=== PATIENT | female | born 1975 | race Caucasian/White ===

== ENCOUNTER 2017-02-06 22:34 | Emergency (ER) | payer BC, OTHER ==
--- NOTE | 2017-02-06 23:25 | EDM.PDOC ---
ED HPI GENERAL MEDICAL PROBLEM - General Chief Complaint: Lower Extremity Injury/Pain Stated Complaint: FELL Time Seen by Provider: 02/06/17 23:16 - History of Present Illness INITIAL COMMENTS - FREE TEXT/NARRATIVE: HISTORY AND PHYSICAL: History of present illness: Patient is 40-year-old female presents status post fall she struck her head right elbow and right knee she did not have loss consciousness she does complain of mild headache she does have a contusion and small hematoma on her occipital scalp area she denies chest pain shortness breath palpitations or other concern Review of systems: As per history of present illness and below otherwise all systems reviewed and negative. Past medical history: As per history of present illness and as reviewed below otherwise noncontributory. Surgical history: As per history of present illness and as reviewed below otherwise noncontributory. Social history: No reported history of drug or alcohol abuse. Family history: As per history of present illness and as reviewed below otherwise noncontributory. Physical exam: HEENT: Small right-sided occipital hematoma noted in the scalp normocephalic, pupils reactive, negative for conjunctival pallor or scleral icterus, mucous membranes moist, throat clear, neck supple, nontender, trachea midline. Lungs: Clear to auscultation, breath sounds equal bilaterally, chest nontender. Heart: S1S2, regular, negative for clicks, rubs, or JVD. Abdomen: Soft, nondistended, nontender. Negative for masses or hepatosplenomegaly. Negative for costovertebral tenderness. Pelvis: Stable nontender. Genitourinary: Deferred. Rectal: Deferred. Extremities: No gross deformity no point tenderness no crepitation neurovascular exam unremarkable throughout Neuro: Awake, alert, oriented. Cranial nerves II through XII unremarkable. Cerebellum unremarkable. Motor and sensory unremarkable throughout. Exam nonfocal. Diagnostics: CT brain x-ray right elbow x-ray right knee Therapeutics: None Impression: #1 observation status post fall #2 head trauma #3 right elbow injury #4 right knee injury Definitive disposition and diagnosis as appropriate pending reevaluation and review of above. right knee Pain Score (Numeric/FACES): 8 - Related Data Allergies Allergy/AdvReac Type Severity Reaction Status Date / Time ciprofloxacin HCl Allergy Tachycardia Verified 02/06/17 22:47 [From Cipro] morphine Allergy Anaphylactic Verified 02/06/17 22:47 Shock sertraline HCl [From Zoloft] Allergy Change Verified 02/06/17 22:47 Mental Status Home Meds: Home Meds Citalopram Hydrobromide [Celexa] 20 mg PO BEDTIME 02/27/14 [History] Fa/Arginine HCl/B12/B6/Pep Ex [Folbee Ar Tablet] 1 each PO WDIN 02/27/14 [ History] Pantoprazole [Protonix] 40 mg PO BEDTIME 02/27/14 [History] traZODone 50 mg PO BEDTIME 02/27/14 [History] Past Medical History HEENT History: Reports: None Cardiovascular History: Reports: Hypertension Respiratory History: Reports: Asthma, Other (See Below) Other Respiratory History: Reactive airway disease Gastrointestinal History: Reports: None Genitourinary History: Reports: None [employer]ATE History: Reports: Spontaneous Musculoskeletal History: Reports: None Neurological History: Reports: None Psychiatric History: Reports: Anxiety, Depression Endocrine/Metabolic History: Reports: Hypoparathyroidism Hematologic History: Reports: None Immunologic History: Reports: None Oncologic (Cancer) History: Reports: None Dermatologic History: Reports: None - Infectious Disease History Infectious Disease History: Reports: Chicken Pox - Past Surgical History HEENT Surgical History: Reports: Tonsillectomy GI Surgical History: Reports: Bariatric Procedure, Cholecystectomy Musculoskeletal Surgical History: Reports: Other (See Below) Other Musculoskeletal Surgeries/Procedures:: bilateral knee surgery Social & Family History - Family History Family Medical History: Noncontributory - Tobacco Use Smoking Status *Q: Former Smoker Years of Tobacco use: 3 Used Tobacco, but Quit: No - Recreational Drug Use Recreational Drug Use: No Review of Systems - Review of Systems Review Of Systems: ROS reveals no pertinent complaints other than HPI. ED EXAM, GENERAL - Physical Exam Exam: See Below (See dictation) Course - Vital Signs Last Recorded V/S: Last Vital Signs Temp 36.3 C 02/06/17 22:50 Pulse 88 02/06/17 22:50 Resp 18 02/06/17 22:50 BP 152/98 H 02/06/17 22:50 Pulse Ox 98 02/06/17 22:50 - Orders/Labs/Meds Orders: Active Orders 24 hr Category Date Time Status Elbow 2V Rt [CR] Stat Exams 02/06/17 22:52 Ordered Head wo Cont [CT] Stat Exams 02/06/17 22:52 Ordered Knee 1V or 2V Rt [CR] Stat Exams 02/06/17 22:52 Ordered Departure - Departure Time of Disposition: 23:22 Disposition: Home, Self-Care 01 Condition: Good Clinical Impression: Head injury, Elbow injury, Knee injury - Discharge Information Referrals: Alexis Corrales MD [Primary Care Provider] - Additional Instructions: The following information is given to patients seen in the emergency department who are being discharged to home. This information is to outline your options for follow-up care. We provide all patients seen in our emergency department with a follow-up referral. The need for follow-up, as well as the timing and circumstances, are variable depending upon the specifics of your emergency department visit. If you don't have a primary care physician on staff, we will provide you with a referral. We always advise you to contact your personal physician following an emergency department visit to inform them of the circumstance of the visit and for follow-up with them and/or the need for any referrals to a consulting specialist. The emergency department will also refer you to a specialist when appropriate. This referral assures that you have the opportunity for followup care with a specialist. All of these measure are taken in an effort to provide you with optimal care, which includes your followup. Under all circumstances we always encourage you to contact your private physician who remains a resource for coordinating your care. When calling for followup care, please make the office aware that this follow-up is from your recent emergency room visit. If for any reason you are refused follow-up, please contact the [facility] emergency department at and asked to speak to the emergency department charge nurs Follow-up primary medical doctor 1-2 days Motrin/Tylenol as directed return as needed as discussed[] - My Orders Last 24 Hours: My Active Orders 02/06/17 22:52 Elbow 2V Rt [CR] Stat Head wo Cont [CT] Stat Knee 1V or 2V Rt [CR] Stat - Assessment/Plan Last 24 Hours: My Active Orders 02/06/17 22:52 Elbow 2V Rt [CR] Stat Head wo Cont [CT] Stat Knee 1V or 2V Rt [CR] Stat
[2017-02-07 00:09] VITALS: BP 144/65
--- NOTE | 2017-02-08 15:51 | CT ---
EXAM DATE: 02/06/17 PATIENT'S AGE: 41 Patient: KIRILL KAY Facility: [place], [place] Site . Site : 1975 Study: CT Head WO CONT [id number]/9/2017 11:22:34 PM Ordering Physician: Doctor Delatorre Final Report: INDICATION: FALL, HEAD INJURY TECHNIQUE: CT Head without i.v. contrast. COMPARISON: None FINDINGS: CSF spaces: Within normal limits for age. Brain parenchyma: The brain parenchyma is normal in appearance with preservation of the self-white matter junction. No sign of mass, hemorrhage, or midline shift. Skull base and calvarium: The visualized paranasal sinuses are well aerated. The mastoid air cells are clear. The visualized orbits are grossly unremarkable. No skull fractures are seen. IMPRESSION: 1. No CT evidence of acute infarct, hemorrhage, or mass effect seen. Dictated by: Jhonny Moulton MD @ 02/06/2017 23:51:08 (Electronic Signature) Report Signed by Proxy. RENALDO
--- NOTE | 2017-02-08 15:52 | CR ---
EXAM DATE: 02/06/17 PATIENT'S AGE: 41 Patient: KIRILL MELVIN Facility: [place], [place] Site . Site : 1975 Study: XRay Knee Right [id number]/9/2017 11:22:57 PM Ordering Physician: Doctor Delatorre Final Report: INDICATION: FALL, RIGHT KNEE PAIN TECHNIQUE: Knee radiograph 2 views right COMPARISON: None FINDINGS: The study is moderately limited by body habitus. Bones: Alignment is normal. No acute fractures or aggressive bone lesions identified. Joint spaces: Unremarkable. No knee effusion is seen on the lateral exam. Soft tissues: Unremarkable. No radiopaque foreign bodies are seen. IMPRESSION: 1. No acute osseous injuries are noted. Dictated by: Jhonny Moulton MD @ 02/06/2017 23:31:23 (Electronic Signature) Report Signed by Proxy. [facility]US[facility]
--- NOTE | 2017-02-08 15:53 | CR ---
EXAM DATE: 02/06/17 PATIENT'S AGE: 41 [facility]: [place], [place] Site . Site : 1975 Study: XRay Extremity Right ELBOW [id number]/9/2017 11:23:20 PM Ordering Physician: Doctor Delatorre Final Report: INDICATION: FALL, RIGHT ELBOW PAIN TECHNIQUE: Elbow radiograph 2 views right COMPARISON: None FINDINGS: Bones: Alignment is normal. No acute fractures or aggressive bone lesions identified. Joint spaces: Unremarkable. No displacement of the anterior or posterior fat pads are noted to suggest an elbow effusion. Soft tissues: Unremarkable. No radiopaque foreign bodies are seen. IMPRESSION: 1. No acute osseous injuries are noted. Dictated by: Jhonny Moulton MD @ 02/06/2017 23:31:53 (Electronic Signature) Report Signed by Proxy. [facility]ITAL[facility]
== END 2017-02-07 00:05 | disposition home or self-care (01) ==
LOC: MW.ED 22:34
DX: S00.03XA Contusion of scalp, initial encounter (principal); S59.901A Unspecified injury of right elbow, initial encounter; S89.91XA Unspecified injury of right lower leg, initial encounter; I10 Essential (primary) hypertension; J45.909 Unspecified asthma, uncomplicated; F41.9 Anxiety disorder, unspecified; F32.9 Major depressive disorder, single episode, unspecified; Z88.1 Allergy status to other antibiotic agents; Z88.8 Allergy status to other drugs, medicaments and biological substances; Z79.899 Other long term (current) drug therapy; Z88.5 Allergy status to narcotic agent; Z98.890 Other specified postprocedural states; Z90.49 Acquired absence of other specified parts of digestive tract; Z87.891 Personal history of nicotine dependence; W01.10XA Fall on same level from slipping, tripping and stumbling with subsequent striking against unspecified object, initial encounter
CPT/HCPCS: 70450; 70450-26; 73070-26-RT; 73070-RT; 73560-26-RT; 73560-RT; 99282; 99283

== ENCOUNTER 2017-07-23 07:02 | Emergency (ER) | payer BC, OTHER ==
--- NOTE | 2017-07-23 07:32 | EDM.PDOC ---
ED HPI GENERAL MEDICAL PROBLEM - General Chief Complaint: General Stated Complaint: SINUS INFECTION, EAR INFECTION Time Seen by Provider: 07/23/17 07:32 Source of Information: Reports: Patient - History of Present Illness INITIAL COMMENTS - FREE TEXT/NARRATIVE: HISTORY AND PHYSICAL: History of present illness: [Patient has a history of concussion and postconcussive syndrome injury occurred back in January she has had CT of the head and subsequent MRI of March with any acute findings essentially normal studies Patient has a history of sinusitis and ear infection over the last week she has been on Augmentin, medication was prescribed last one week ago however she did not begin the medication until Wednesday, last night she felt as if she were going to faint, she lied in her bed for a period of time symptoms resolve no fainting occurred. At the time she was standing at her sink doing dishes. She has continued sinus pressure no pain and pressure sensation in her ears No fever nausea vomiting diarrhea constipation chest pain shortness of breath no current headache dizziness or palpitation no bowel or urine symptoms ] Review of systems: As per history of present illness and below otherwise all systems reviewed and negative. Past medical history: As per history of present illness and as reviewed below otherwise noncontributory. Surgical history: As per history of present illness and as reviewed below otherwise noncontributory. Social history: No reported history of drug or alcohol abuse. Family history: As per history of present illness and as reviewed below otherwise noncontributory. Physical exam: HEENT: Atraumatic, normocephalic, pupils reactive, negative for conjunctival pallor or scleral icterus, mucous membranes moist, throat clear, neck supple, nontender, trachea midline. Lungs: Clear to auscultation, breath sounds equal bilaterally, chest nontender. Heart: S1S2, regular, negative for clicks, rubs, or JVD. Abdomen: Soft, nondistended, nontender. Negative for masses or hepatosplenomegaly. Negative for costovertebral tenderness. Pelvis: Stable nontender. Genitourinary: Deferred. Rectal: Deferred. Extremities: Atraumatic, negative for cords or calf pain. Neurovascular unremarkable. Neuro: Awake, alert, oriented. Cranial nerves II through XII unremarkable. Cerebellum unremarkable. Motor and sensory unremarkable throughout. Exam nonfocal. Diagnostics: [CBC CMP UA hCG troponin EKG Chest [address] and MRI head on file ] Therapeutics: [Augmentin continue day 3 of 14 ]Normal saline bolus Impression: [Otitis media improved Acute sinusitis improved Near-syncope Postconcussion] syndrome Mild dehydration Definitive disposition and diagnosis as appropriate pending reevaluation and review of above. Face Pain Score (Numeric/FACES): 7 - Related Data Allergies Allergy/AdvReac Type Severity Reaction Status Date / Time ciprofloxacin HCl Allergy Tachycardia Verified 07/23/17 07:15 [From Cipro] morphine Allergy Anaphylactic Verified 07/23/17 07:15 Shock sertraline HCl [From Zoloft] Allergy Change Verified 07/23/17 07:15 Mental Status Home Meds: Home Meds Pantoprazole [Protonix] 40 mg PO BEDTIME 02/27/14 [History] Amitriptyline [Elavil] 30 mg PO DAILY 07/23/17 [History] Celecoxib [CeleBREX] 100 mg PO DAILY 07/23/17 [History] Desvenlafaxine Succinate [Pristiq] 100 mg PO DAILY 07/23/17 [History] Losartan [Cozaar] 50 mg PO DAILY 07/23/17 [History] Past Medical History HEENT History: Reports: None Cardiovascular History: Reports: Hypertension Respiratory History: Reports: Asthma, Other (See Below) Other Respiratory History: Reactive airway disease Gastrointestinal History: Reports: None Genitourinary History: Reports: None [employer]BER History: Reports: Spontaneous Musculoskeletal History: Reports: None Neurological History: Reports: None Psychiatric History: Reports: Anxiety, Depression Endocrine/Metabolic History: Reports: Hypoparathyroidism Hematologic History: Reports: None Immunologic History: Reports: None Oncologic (Cancer) History: Reports: None Dermatologic History: Reports: None - Infectious Disease History Infectious Disease History: Reports: Chicken Pox - Past Surgical History HEENT Surgical History: Reports: Tonsillectomy GI Surgical History: Reports: Bariatric Procedure, Cholecystectomy Musculoskeletal Surgical History: Reports: Other (See Below) Other Musculoskeletal Surgeries/Procedures:: bilateral knee surgery Social & Family History - Family History Family Medical History: Noncontributory - Tobacco Use Smoking Status *Q: Former Smoker Years of Tobacco use: 3 Used Tobacco, but Quit: Yes Month Tobacco Last Used: 15 years - Recreational Drug Use Recreational Drug Use: No ED ROS GENERAL - Review of Systems Review Of Systems: ROS reveals no pertinent complaints other than HPI. ED EXAM, GENERAL - Physical Exam Exam: See Below Course - Vital Signs Last Recorded V/S: Last Vital Signs Temp 95.9 F 07/23/17 07:11 Pulse 114 H 07/23/17 07:11 Resp 18 07/23/17 07:11 BP 137/94 H 07/23/17 07:11 Pulse Ox 96 07/23/17 07:11 Orthostatic Blood Pressure [ 113/71 Standing] Orthostatic Blood Pressure [ 126/80 Sitting] Orthostatic Blood Pressure [ 121/88 Supine] - Orders/Labs/Meds Orders: Active Orders 24 hr Category Date Time Status EKG Documentation Completion [RC] STAT Care 07/23/17 07:30 Active Orthostatic Vital Signs [RC] ASDIRECTED Care 07/23/17 08:42 Active Sodium Chloride 0.9% [Normal Saline] 500 ml Med 07/23/17 09:00 Ordered IV STAT Medication Orders Sodium Chloride (Normal Saline) 500 mls @ 999 mls/hr IV STAT RANJEET Labs: Laboratory Tests 07/23/17 07/23/17 07/23/17 Range/Units 07:40 07:40 07:46 WBC 5.33 (4.0-11.0) K/uL RBC 5.70 (4.30-5.90) M/uL Hgb 12.7 (12.0-16.0) g/dL Hct 41.5 (36.0-46.0) % MCV 72.8 L (80.0-98.0) fL MCH 22.3 L (27.0-32.0) pg MCHC 30.6 L (31.0-37.0) g/dL RDW Std Deviation 52.4 (28.0-62.0) fl RDW Coeff of Max 20 H (11.0-15.0) % Plt Count 273 (150-400) K/uL MPV 9.60 (7.40-12.00) fL Neut % (Auto) 50.8 (48.0-80.0) % Lymph % (Auto) 41.1 H (16.0-40.0) % [place] % (Auto) 6.9 (0.0-15.0) % Eos % (Auto) 0.8 (0.0-7.0) % Baso % (Auto) 0.4 (0.0-1.5) % Neut # (Auto) 2.7 (1.4-5.7) K/uL Lymph # (Auto) 2.2 (0.6-2.4) K/uL [place] # (Auto) 0.4 (0.0-0.8) K/uL Eos # (Auto) 0.0 (0.0-0.7) K/uL Baso # (Auto) 0.0 (0.0-0.1) K/uL Nucleated RBC % 0.0 /100WBC Nucleated RBCs # 0 K/uL Sodium 140 (136-146) mmol/L Potassium 4.2 (3.5-5.1) mmol/L Chloride 105 (98-110) mmol/L Carbon Dioxide 24 (21-31) mmol/L BUN 17 (6.0-23.0) mg/dL Creatinine 0.7 (0.6-1.5) mg/dL Est Cr Clr Drug Dosing 104.53 mL/min Estimated GFR (MDRD) > 60.0 ml/min Glucose 100 (60-110) mg/dL Calcium 9.5 (8.8-10.8) mg/dL Total Bilirubin 0.4 (0.1-1.5) mg/dL AST 19 (5-40) IU/L ALT 18 (8-54) IU/L Alkaline Phosphatase 111 (40-150) Troponin I < 0.10 (0.0-0.29) NG/ML Total Protein 7.1 (6.0-8.0) g/dL Albumin 3.9 (3.5-5.0) g/dL Globulin 3.2 (2.0-3.5) g/dL Albumin/Globulin Ratio 1.2 L (1.3-2.8) Urine Color YELLOW Urine Appearance CLEAR Urine pH 5.5 (5.0-8.0) Ur Specific [place] >= 1.030 (1.001-1.035) Urine Protein 30 (NEGATIVE) mg/dL Urine Glucose (UA) NEGATIVE (NEGATIVE) mg/dL Urine Ketones TRACE H (NEGATIVE) mg/dL Urine Occult Blood NEGATIVE (NEGATIVE) Urine Nitrite NEGATIVE (NEGATIVE) Urine Bilirubin NEGATIVE (NEGATIVE) Urine Urobilinogen 0.2 (<2.0) EU/dL Ur Leukocyte Esterase NEGATIVE (NEGATIVE) Urine RBC 0+-1 (0-2/HPF) Urine WBC 2-4 (0-5/HPF) Ur Epithelial Cells FEW (NONE-FEW) Calcium Oxalate Crystal 1-2 (NEGATIVE) Urine Bacteria FEW (NEGATIVE) Urine Mucus HEAVY (NONE-MOD) Urine HCG, Qual (NEGATIVE) 07/23/17 Range/Units 07:46 WBC (4.0-11.0) K/uL RBC (4.30-5.90) M/uL Hgb (12.0-16.0) g/dL Hct (36.0-46.0) % MCV (80.0-98.0) fL MCH (27.0-32.0) pg MCHC (31.0-37.0) g/dL RDW Std Deviation (28.0-62.0) fl RDW Coeff of Max (11.0-15.0) % Plt Count (150-400) K/uL MPV (7.40-12.00) fL Neut % (Auto) (48.0-80.0) % Lymph % (Auto) (16.0-40.0) % [place] % (Auto) (0.0-15.0) % Eos % (Auto) (0.0-7.0) % Baso % (Auto) (0.0-1.5) % Neut # (Auto) (1.4-5.7) K/uL Lymph # (Auto) (0.6-2.4) K/uL [place] # (Auto) (0.0-0.8) K/uL Eos # (Auto) (0.0-0.7) K/uL Baso # (Auto) (0.0-0.1) K/uL Nucleated RBC % /100WBC Nucleated RBCs # K/uL Sodium (136-146) mmol/L Potassium (3.5-5.1) mmol/L Chloride (98-110) mmol/L Carbon Dioxide (21-31) mmol/L BUN (6.0-23.0) mg/dL Creatinine (0.6-1.5) mg/dL Est Cr Clr Drug Dosing mL/min Estimated GFR (MDRD) ml/min Glucose (60-110) mg/dL Calcium (8.8-10.8) mg/dL Total Bilirubin (0.1-1.5) mg/dL AST (5-40) IU/L ALT (8-54) IU/L Alkaline Phosphatase (40-150) Troponin I (0.0-0.29) NG/ML Total Protein (6.0-8.0) g/dL Albumin (3.5-5.0) g/dL Globulin (2.0-3.5) g/dL Albumin/Globulin Ratio (1.3-2.8) Urine Color Urine Appearance Urine pH (5.0-8.0) Ur Specific [place] (1.001-1.035) Urine Protein (NEGATIVE) mg/dL Urine Glucose (UA) (NEGATIVE) mg/dL Urine Ketones (NEGATIVE) mg/dL Urine Occult Blood (NEGATIVE) Urine Nitrite (NEGATIVE) Urine Bilirubin (NEGATIVE) Urine Urobilinogen (<2.0) EU/dL Ur Leukocyte Esterase (NEGATIVE) Urine RBC (0-2/HPF) Urine WBC (0-5/HPF) Ur Epithelial Cells (NONE-FEW) Calcium Oxalate Crystal (NEGATIVE) Urine Bacteria (NEGATIVE) Urine Mucus (NONE-MOD) Urine HCG, Qual NEGATIVE (NEGATIVE) Meds: Medications Generic Name Dose Route Start Last Admin Trade Name Freq PRN Reason Stop Dose Admin Sodium Chloride 500 mls @ 999 mls/hr 07/23/17 09:00 Normal Saline IV STAT RANJEET Departure - Departure Time of Disposition: 09:01 Disposition: Home, Self-Care 01 Condition: Good Clinical Impression: Otitis media, Sinusitis, Mild dehydration - Discharge Information Referrals: Alexis Corrales MD [Primary Care Provider] - Forms: ED Department Discharge Additional Instructions: Fluid hydration techniques as discussed Continue current medications as directed Return if symptoms persist or worsen Follow-up with primary care in 2 weeks sooner as needed The following information is given to patients seen in the emergency department who are being discharged to home. This information is to outline your options for follow-up care. We provide all patients seen in our emergency department with a follow-up referral. The need for follow-up, as well as the timing and circumstances, are variable depending upon the specifics of your emergency department visit. If you don't have a primary care physician on staff, we will provide you with a referral. We always advise you to contact your personal physician following an emergency department visit to inform them of the circumstance of the visit and for follow-up with them and/or the need for any referrals to a consulting specialist. The emergency department will also refer you to a specialist when appropriate. This referral assures that you have the opportunity for follow-up care with a specialist. All of these measure are taken in an effort to provide you with optimal care, which includes your follow-up. Under all circumstances we always encourage you to contact your private physician who remains a resource for coordinating your care. When calling for follow-up care, please make the office aware that this follow-up is from your recent emergency room visit. If for any reason you are refused follow-up, please contact the [facility] emergency department at and asked to speak to the emergency department charge nurse. - My Orders Last 24 Hours: My Active Orders 07/23/17 07:30 EKG Documentation Completion [RC] STAT 07/23/17 08:42 Orthostatic Vital Signs [RC] ASDIRECTED 07/23/17 09:00 Sodium Chloride 0.9% [Normal Saline] 500 ml IV STAT - Assessment/Plan Last 24 Hours: My Active Orders 07/23/17 07:30 EKG Documentation Completion [RC] STAT 07/23/17 08:42 Orthostatic Vital Signs [RC] ASDIRECTED 07/23/17 09:00 Sodium Chloride 0.9% [Normal Saline] 500 ml IV STAT
[2017-07-23 07:47] VITALS: BP 137/94
[2017-07-23 08:08] LABS: CHLORIDE,CL 105 mmol/L (98-110); SODIUM,NA 140 mmol/L (136-146)
--- NOTE | 2017-07-23 08:50 | CR ---
EXAMINATION: Portable chest radiograph. HISTORY: Syncope. FINDINGS: The trachea is midline. The cardiomediastinal silhouette is within normal limits. No pulmonary infilt rates, effusions or pneumothorax. Osseous structures appear unremarkable. IMPRESSION: No acute cardiopulmonary process.
[2017-07-23] MEDS ORDERED: Sodium Chloride 0.9% 500 ML IV SCH (09:00)
== END 2017-07-23 10:12 | disposition home or self-care (01) ==
LOC: MW.ED 07:02
DX: J01.90 Acute sinusitis, unspecified (principal); F07.81 Postconcussional syndrome; H66.90 Otitis media, unspecified, unspecified ear; E86.0 Dehydration; I10 Essential (primary) hypertension; F32.9 Major depressive disorder, single episode, unspecified; Z87.891 Personal history of nicotine dependence; Z79.899 Other long term (current) drug therapy; Z88.1 Allergy status to other antibiotic agents; Z88.5 Allergy status to narcotic agent; Z88.8 Allergy status to other drugs, medicaments and biological substances
CPT/HCPCS: 36415; 71045; 80053; 81001; 81025; 84484; 85025; 93005; 96360; 99285; J7040; 99283

== ENCOUNTER 2018-09-25 01:58 | Emergency (ER) | payer BC ==
[2018-09-25] MEDS ORDERED: Ondansetron 4 MG/2 ML SDV ONE (02:26)
[2018-09-25 07:09] LABS: CHLORIDE,CL 106 mmol/L (98-107); SODIUM,NA 140 mmol/L (136-145)
[2018-09-25 11:20] VITALS: BP 109/68
--- NOTE | 2018-09-26 10:50 | CR ---
EXAM DATE: 09/25/18 PATIENT'S AGE: 42 Patient: KIRILL VILLANUEVA Facility: [facility], [facility] : 02/06/1976 Study: XRay-Chest/Abd -09/25/2018 2:48:14 AM Ordering Physician: nino Final Report: Indication: Chest and abdominal pain Technique: Chest x-ray, single view, and two view abdomen Comparison: None Findings: Single view of the chest shows no focal pulmonary consolidation or pleural effusion. Heart size and mediastinum are unremarkable. Views of the abdomen show multiple surgical clips with air present predominantly within colon as well as possible mild small-bowel air. Right upper quadrant surgical clips as well as a suture line in the epigastric region. Impression: 1. Somewhat nonspecific bowel gas pattern although without convincing evidence of obstruction. 2. Unremarkable single-view chest. Dictated by Miguel Lamb MD @ Sep 25 2018 3:19AM Signed by: Miguel Lamb MD @09/25/2018 3:21:38 AM (Electronic Signature) Report Signed by Proxy. RENALDO
== END 2018-09-25 03:40 | disposition home or self-care (01) ==
LOC: MW.ED 01:58
DX: R19.7 Diarrhea, unspecified (principal)
CPT/HCPCS: 74022; 74022-26; 80053; 83690; 85025; 87081; 87804; 87880-QW; 96361; 96374; 99284-25

== ENCOUNTER 2021-01-04 06:32 | Emergency (ER) | payer OTHER ==
[2021-01-04] MEDS ORDERED: Aspirin 81 MG Tab.Chew PO ONE (06:43)
--- NOTE | 2021-01-04 06:52 | EDM.PDOC ---
<Federico Lemus - Last Filed: 01/04/21 06:50> ED HPI GENERAL MEDICAL PROBLEM - General Chief Complaint: Chest Pain Stated Complaint: CHEST PAIN Time Seen by Provider: 01/04/21 06:42 - History of Present Illness INITIAL COMMENTS - FREE TEXT/NARRATIVE: CHIEF COMPLAINT(S): Chest pain HISTORY OF PRESENT ILLNESS: This is a 45-year-old woman obesity status post gastric bypass, hyperlipidemia and Covid approximately 10 months ago with resultant intermittent chest pain and worsening after Moderna vaccine who follows up with fabricator foam rubber at [facility] in [place] who comes to the emergency department with a chief complaint of chest pain. The patient states that approximately 1 hour upon awakening the patient started to experience left- sided chest pain which radiated to her right and her right arm which she describes as someone stepping on her chest. She rates this pain as 5-6 out of 10. There was no associated diaphoresis, nausea or vomiting. She denies any syncope. She denies any recent travel, recent surgery, prior history of DVT or PE. She states that since being here her pain has improved. She denies any radiation this pain to her back. She denies any history of CAD or CHF. She states that she recently underwent an echocardiogram which did reveal some regurgitation of some valves otherwise unremarkable. In addition she underwent a stress test which revealed apical tachycardia in her ventricle and a Zio patch which showed SVT. She states that she is scheduled for a catheterization next with her fabricator foam rubber. She denies any other symptoms. REVIEW OF SYSTEMS: Constitutional: Denies fever, chills. Eyes: Denies eye pain Ears, Nose, Mouth, & Throat: Denies earache Cardiovascular: Positive for chest pain Respiratory: Denies shortness of breath Gastrointestinal: Denies Nausea, vomiting, diarrhea, hematochezia. Genitourinary: Denies hematuria Skin:Denies a rash MSK: Denies joint pain Neurological: Denies blurred vision Psychiatric: Denies depression PAST MEDICAL HISTORY: As per history of present illness and as reviewed below otherwise noncontributory. SURGICAL HISTORY: As per history of present illness and as reviewed below otherwise noncontributory. SOCIAL HISTORY: As per history of present illness and as reviewed below otherwise noncontributory. FAMILY HISTORY: As per history of present illness and as reviewed below otherwise noncontributory. EXAMINATION OF ORGAN SYSTEMS/BODY AREAS: Constitutional: Blood pressure was 151/106, heart rate 77, respiratory 15 with an oxygen saturation 97% on room air. Temperature 36.0 General: Obese woman who is tearful but in no acute distress Psychiatric: Appropriate mood and affect. Eyes: No scleral icterus or conjunctival erythema ENMT: Moist mucous membranes. No pharyngeal erythema Cardiovascular: Regular, rate, and rhythm. No gallops, murmurs, or rubs. Bilateral upper extremity pulses symmetric and intact. No peripheral edema. No JVD. Respiratory: Lungs clear to auscultation bilaterally. No wheezes, rales, or rhonchi. Gastrointestinal: Soft, non-tender, non-distended. Normoactive bowel sounds Genitourinary: No suprapubic tenderness Musculoskeletal: Normal range of motion. Skin: No lesions or abrasions. Neurological: Alert, GCS 15 MEDICAL DECISION MAKING AND COURSE IN THE ED WITH INTERPRETATION/REVIEW OF DIAGNOSTIC STUDIES: This is a 45-year-old woman with a past medical history of obesity status post gastric bypass, hypertension, hyperlipidemia, GERD who comes to the emergency department with acute onset chest pain approximately 1 hour prior to arrival who is mildly hypertensive but overall appears well. Screening EKG was obtained which did not reveal any acute signs of ischemia. Given her history will obtain a cardiac work-up. We will provide the patient with 3 and 24 mg of aspirin. Given the chronicity of this I do believe this is likely not ACS however given her risk factors we will undergo a ACS work-up. Differential does include myocarditis, pericarditis however EKG is not suggestive of these. Patient is low risk for PE therefore no PE study will be obtained. PERC Rule Age (>/=50): No (0) HR (>/=100): No (0) SaO2 on RA <95%: No (0) Unilateral Leg Swelling: No (0) Hemoptysis: No (0) Surgery/Trauma in last month requiring general anesthesia: No (0) Prior PE or DVT: : No (0) Hormone Use: No (0) PERC negative Since patient is PERC negative and pre-test probability <15%, there is no need for more intensive workup, <2% chance of PE Time: 0635 Twelve-lead EKG interpreted by myself. Normal sinus rhythm at a rate of 71beats per minute. Normal axis. NM interval is 158ms. QRS duration is 109ms. ST segments are normal without elevations or depressions. No T wave inversions no Q waves present. Hypertrophy not noted. No changes demonstrated from prior EKG dated 07/23/2017. Interpretation: sinus rhythm Patient came in during signout. The patient will be signed out to oncoming team physician pending further work-up and disposition. The patient will likely need a repeat troponin given the onset of her symptoms. DISPOSITION: Patient was signed out to oncoming day team physician pending laboratory work-up and final disposition and repeat troponin CONDITION: Fair PROCEDURES: None FINAL IMPRESSION(S)/DIAGNOSES: 1. Acute chest pain Federico Lemus M.D. chest Pain Score (Numeric/FACES): 9 - Related Data Allergies Allergy/AdvReac Type Severity Reaction Status Date / Time ciprofloxacin HCl Allergy Tachycardia Verified 01/04/21 06:42 [From Cipro] morphine Allergy Anaphylactic Verified 01/04/21 06:42 Shock sertraline HCl [From Zoloft] Allergy Change Verified 01/04/21 06:42 Mental Status Home Meds: Home Meds Pantoprazole [Protonix] 40 mg PO BEDTIME 02/27/14 [History] Cyanocobalamin/Folic AC/Vit B6 [Folbee] 1 tab PO WEEKLY 01/04/21 [History] Fremanezumab-Vfrm [Ajovy Syringe] 3 injection INJECT ASDIRECTED 01/04/21 [History] Iron 324 mg PO BID 01/04/21 [History] Maxalt 40 mg PO DAILY 01/04/21 [History] Metoclopramide [Reglan] 40 mg PO DAILY 01/04/21 [History] Omega3/Dha/Epa/Fish Oil/Vit D3 [Fish Oil-Vit D3 Softgel] 1 tab PO DAILY 01/04/21 [History] Rosuvastatin [Crestor] 10 mg PO DAILY 01/04/21 [History] hydrOXYzine HCL [hydrOXYzine] 10 mg PO DAILY 01/04/21 [History] Past Medical History HEENT History: Reports: None Cardiovascular History: Reports: Hypertension Other Cardiovascular History: svt Respiratory History: Reports: Asthma, Other (See Below) Other Respiratory History: Reactive airway disease Gastrointestinal History: Reports: None Genitourinary History: Reports: None 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 Musculoskeletal History: Reports: None Neurological History: Reports: None Psychiatric History: Reports: Anxiety, Depression Endocrine/Metabolic History: Reports: Hypoparathyroidism Hematologic History: Reports: None Immunologic History: Reports: None Oncologic (Cancer) History: Reports: None Dermatologic History: Reports: None - Infectious Disease History Infectious Disease History: Reports: Chicken Pox - Past Surgical History HEENT Surgical History: Reports: Tonsillectomy GI Surgical History: Reports: Bariatric Procedure, Cholecystectomy Musculoskeletal Surgical History: Reports: Other (See Below) Other Musculoskeletal Surgeries/Procedures:: bilateral knee surgery Social & Family History - Family History Family Medical History: No Pertinent Family History - Tobacco Use Tobacco Use Status *Q: Former Tobacco User Used Tobacco, but Quit: Yes Month/Year Tobacco Last Used: many years ago ED ROS GENERAL - Review of Systems Review Of Systems: See Below ED EXAM, GENERAL - Physical Exam Exam: See Below Departure - Departure Disposition: Home, Self-Care 01 Clinical Impression: Chest pain - Discharge Information Instructions: Nonspecific Chest Pain, Adult, [id number] Referrals: PCP,None [Primary Care Provider] - Forms: ED Department Discharge Additional Instructions: Keep your appointment in [place]. Return if worse. [facility] [address] [place] [address] [place] [id number] The following information is given to patients seen in the emergency department who are being discharged to home. This information is to outline your options for follow-up care. We provide all patients seen in our emergency department with a follow-up referral. The need for follow-up, as well as the timing and circumstances, are variable depending upon the specifics of your emergency department visit. If you don't have a primary care physician on staff, we will provide you with a referral. We always advise you to contact your personal physician following an emergency department visit to inform them of the circumstance of the visit and for follow-up with them and/or the need for any referrals to a consulting specialist. The emergency department will also refer you to a specialist when appropriate. This referral assures that you have the opportunity for follow-up care with a specialist. All of these measure are taken in an effort to provide you with optimal care, which includes your follow-up. Under all circumstances we always encourage you to contact your private physician who remains a resource for coordinating your care. When calling for follow-up care, please make the office aware that this follow-up is from your recent emergency room visit. If for any reason you are refused follow-up, please contact the [facility] Emergency Department at and asked to speak to the emergency department charge nurse. Sepsis Event Note (ED) - Evaluation Sepsis Screening Result: No Definite Risk <Sukh Thompson - Last Filed: 01/04/21 09:36> Course - Vital Signs Text/Narrative:: 07:19 Dr. Lemus evaluated this patient and recommended a 9 AM troponin repeat. The patient has a coronary angiogram scheduled next week. She is comfortable in the department now and understands the plan. If the troponin is not rising she will be discharged. Last Recorded V/S: Last Vital Signs Temp 36.0 C L 01/04/21 06:44 Pulse 55 L 01/04/21 09:07 Resp 16 01/04/21 09:07 BP 116/81 01/04/21 09:07 Pulse Ox 98 01/04/21 09:07 - Orders/Labs/Meds Orders: Active Orders 24 hr Category Date Time Status Cardiac Monitoring [RC] . DIRECTED Care 01/04/21 06:43 Active EKG Documentation Completion [RC] STAT Care 01/04/21 06:42 Active Pulse Oximetry [RC] ASDIRECTED Care 01/04/21 06:43 Active Labs: Laboratory Tests 01/04/21 01/04/21 01/04/21 Range/Units 06:40 06:40 09:00 WBC 5.83 (4.0-11.0) K/uL RBC 5.45 (4.30-5.90) M/uL Hgb 14.1 (12.0-16.0) g/dL Hct 43.2 (36.0-46.0) % MCV 79.3 L (80.0-98.0) fL MCH 25.9 L (27.0-32.0) pg MCHC 32.6 (31.0-37.0) g/dL RDW Std Deviation 45.5 (28.0-62.0) fl RDW Coeff of Max 16 H (11.0-15.0) % Plt Count 231 (150-400) K/uL MPV 10.20 (7.40-12.00) fL Neut % (Auto) 53.8 (48.0-80.0) % Lymph % (Auto) 38.1 (16.0-40.0) % Fleming % (Auto) 6.9 (0.0-15.0) % Eos % (Auto) 1.0 (0.0-7.0) % Baso % (Auto) 0.2 (0.0-1.5) % Neut # (Auto) 3.1 (1.4-5.7) K/uL Lymph # (Auto) 2.2 (0.6-2.4) K/uL Fleming # (Auto) 0.4 (0.0-0.8) K/uL Eos # (Auto) 0.1 (0.0-0.7) K/uL Baso # (Auto) 0.0 (0.0-0.1) K/uL Nucleated RBC % 0.0 /100WBC Nucleated RBCs # 0 K/uL Sodium 141 (136-145) mmol/L Potassium 4.3 (3.5-5.1) mmol/L Chloride 105 (98-107) mmol/L Carbon Dioxide 28.7 (21.0-32.0) mmol/L BUN 15 (7.0-18.0) mg/dL Creatinine 0.6 (0.6-1.0) mg/dL Est Cr Clr Drug Dosing 116.93 mL/min Estimated GFR (MDRD) > 60.0 ml/min Glucose 95 (74-106) mg/dL Calcium 8.6 (8.5-10.1) mg/dL Magnesium 1.8 (1.8-2.4) mg/dL Troponin I < 0.050 < 0.050 (0.000-0.056) ng/mL Free T4 0.85 (0.76-1.46) ng/dL TSH, Ultra Sensitive 4.30 H (0.36-3.74) uIU/mL Meds: Medications Discontinued Medications Generic Name Dose Route Start Last Admin Trade Name Freq PRN Reason Stop Dose Admin Aspirin 324 mg 01/04/21 06:43 01/04/21 06:50 Aspirin 81 Mg Tab.Chew PO 01/04/21 06:44 324 mg ONETIME ONE Administration Departure - Departure Time of Disposition: 09:35 Condition: Good Sepsis Event Note (ED) - Focused Exam Vital Signs: Vital Signs Temp Pulse Resp BP Pulse Ox 01/04/21 09:07 55 L 16 116/81 98 01/04/21 08:04 56 L 16 133/76 98 01/04/21 06:44 36.0 C L 77 15 151/106 H 97
--- NOTE | 2021-01-04 07:12 | CR ---
INDICATION: Chest pain. TECHNIQUE: Chest 1 view. COMPARISON: 23 July 2017 FINDINGS: Cardiovascular and mediastinum: Heart size and vasculature are normal in caliber and appearance. Mediastinum is within normal limits. Lungs and pleural space: Lungs are clear. No sign of infiltrate or mass. No sign of pleural effusion. No pneumothorax. Bones and soft tissues: No significant findings. IMPRESSION: Unremarkable chest. Dictated by Ismael Hutchins MD @ 01/04/2021 7:11:[address] Ismael Hutchins @ Jan 04 2021 7:11AM
[2021-01-04 07:18] LABS: BLOOD UREA NITROGEN,BUN 15 mg/dL (7.0-18.0); CARBON DIOXIDE,CO2 28.7 mmol/L (21.0-32.0); CHLORIDE,CL 105 mmol/L (98-107); GLUCOSE RANDOM 95 mg/dL (74-106); POTASSIUM,K 4.3 mmol/L (3.5-5.1); SODIUM,NA 141 mmol/L (136-145)
[2021-01-04 09:41] VITALS: BP 138/103; PULSE 60
== END 2021-01-04 09:45 | disposition home or self-care (01) ==
LOC: MW.ED 06:32
DX: R07.9 Chest pain, unspecified (principal); I10 Essential (primary) hypertension; E66.9 Obesity, unspecified; Z68.30 Body mass index [BMI] 30.0-30.9, adult; Z88.1 Allergy status to other antibiotic agents; Z88.5 Allergy status to narcotic agent; Z88.8 Allergy status to other drugs, medicaments and biological substances
CPT/HCPCS: 36415; 71045; 80048; 83735; 84439; 84443; 84484; 85025; 93005; 99285; A9270

== ENCOUNTER 2021-09-26 19:02 | Emergency (ER) | payer OTHER ==
[2021-09-26 19:21] VITALS: PULSE 64
[2021-09-26 19:57] LABS: BLOOD UREA NITROGEN,BUN 18 mg/dL (7.0-18.0); CARBON DIOXIDE,CO2 27.3 mmol/L (21.0-32.0); CHLORIDE,CL 104 mmol/L (98-107); GLUCOSE RANDOM 95 mg/dL (74-106); POTASSIUM,K 3.7 mmol/L (3.5-5.1); SODIUM,NA 139 mmol/L (136-145)
[2021-09-26 21:30] VITALS: BP 145/80
== END 2021-09-26 21:29 | disposition home or self-care (01) ==
LOC: MW.ED 19:02
DX: R07.89 Other chest pain (principal); I10 Essential (primary) hypertension; Z90.49 Acquired absence of other specified parts of digestive tract; Z88.1 Allergy status to other antibiotic agents; Z88.6 Allergy status to analgesic agent; Z88.8 Allergy status to other drugs, medicaments and biological substances; Z79.899 Other long term (current) drug therapy
CPT/HCPCS: 36415; 71046; 71046-26; 80053; 84484; 84703; 85025; 93005; 99285-25

== ENCOUNTER 2022-04-04 16:59 | Emergency (ER) | payer OTHER ==
[2022-04-04 19:45] LABS: CARBON DIOXIDE,CO2 27.8 mmol/L (21.0-32.0); POTASSIUM,K 4.1 mmol/L (3.5-5.1)
[2022-04-04 21:15] VITALS: PULSE 60
[2022-04-04 21:58] VITALS: BP 137/72
== END 2022-04-04 22:30 | disposition home or self-care (01) ==
LOC: MW.ED 16:59
DX: R25.2 Cramp and spasm (principal); R60.0 Localized edema; I10 Essential (primary) hypertension; J45.909 Unspecified asthma, uncomplicated; Z87.891 Personal history of nicotine dependence; Z88.1 Allergy status to other antibiotic agents; Z88.5 Allergy status to narcotic agent; Z88.8 Allergy status to other drugs, medicaments and biological substances; Z79.899 Other long term (current) drug therapy
CPT/HCPCS: 36415; 80053; 85025; 85379; 85610; 85730; 93971-26-LT; 93971-LT; 99284

== ENCOUNTER 2023-06-11 20:36 | Emergency (ER) | payer OTHER ==
[2023-06-11] MEDS ORDERED: Sodium Chloride 0.9% 10 ML Syringe FLUSH PRN (21:01)
[2023-06-11] MEDS ORDERED: Sodium Chloride 0.9% 2.5 ML Syringe FLUSH PRN (21:01)
[2023-06-11 21:38] LABS: BASOPHILS ABSOLUTE AUTO 0.02 K/uL (0.00-0.20); BASOPHILS PERCENT AUTO 0.3 % (0.0-1.0); EOSINOPHILS ABSOLUTE AUTO 0.04 K/uL (0.00-0.45); EOSINOPHILS PERCENT AUTO 0.6 % (0.0-6.0); IMMATURE GRAN ABSOLUTE AUTO 0.01 K/uL (0.00-0.05); IMMATURE GRAN PERCENT AUTO 0.1 % (0.0-0.4); LYMPHOCYTES ABSOLUTE AUTO 2.42 K/uL (1.00-4.80); LYMPHOCYTES PERCENT AUTO 35.5 % (24.0-44.0); MEAN CORPUSCULAR HEMOGLOBIN 27.5 pg (28.0-32.0); MEAN CORPUSCULAR HGB CONC 33.3 g/dL (32.0-36.0); MEAN CORPUSCULAR VOLUME 82.4 fL (83.0-99.0); MEAN PLATELET VOLUME 9.6 fL (9.4-12.3); MONOCYTES ABSOLUTE AUTO 0.44 K/uL (0.00-0.80); MONOCYTES PERCENT AUTO 6.5 % (0.0-8.0); NEUTROPHILS ABSOLUTE AUTO 3.89 K/uL (1.80-7.70); PLATELET COUNT,PLT 187 K/uL (150-400); WHITE BLOOD CELL COUNT,WBC 6.82 K/uL (3.9-11.3)
[2023-06-11 22:00] LABS: INR 1.07 (0.86-1.11)
[2023-06-11 22:11] LABS: A/G RATIO 1.1 (0.9-1.6); ALANINE AMINOTRANSFERASE,ALT 44 IU/L (14-63); ALBUMIN 3.5 g/dL (3.4-5.0); ALKALINE PHOSPHATASE 61 U/L (46-116); ASPARTATE AMNIOTRANSFERASE,AST 48 IU/L (15-37); BILIRUBIN TOTAL 0.7 mg/dL (0.2-1.0); BLOOD UREA NITROGEN,BUN 17 mg/dL (7.0-18.0); CALCIUM 8.8 mg/dL (8.5-10.1); CHLORIDE,CL 104 mmol/L (98-107); EST CRCL DRUG DOSING (CG) 68.65 mL/min; GLUCOSE RANDOM 122 mg/dL (74-106); POTASSIUM,K 3.6 mmol/L (3.5-5.1); PROTEIN TOTAL,TP 6.7 g/dL (6.4-8.2); SODIUM,NA 142 mmol/L (136-145)
[2023-06-11 22:16] LABS: ESTIMATED GFR 69 mL/min (>60)
[2023-06-11] MEDS ORDERED: Iopamidol 755 MG/ML 500 ML Multipack Bottle IVPUSH ONE (22:51)
[2023-06-12 01:14] VITALS: BP 120/83; PULSE 67
== END 2023-06-12 01:13 | disposition home or self-care (01) ==
LOC: MW.ED 20:36
DX: R07.9 Chest pain, unspecified (principal); I10 Essential (primary) hypertension; J45.909 Unspecified asthma, uncomplicated; E20.9 Hypoparathyroidism, unspecified; Z90.49 Acquired absence of other specified parts of digestive tract; Z79.899 Other long term (current) drug therapy; Z88.1 Allergy status to other antibiotic agents; Z88.5 Allergy status to narcotic agent; Z88.8 Allergy status to other drugs, medicaments and biological substances
CPT/HCPCS: 36415; 71275; 80053; 83880; 84484; 85025; 85610; 93005; 99285; J3490; Q9967